=== PATIENT | male | born 1925 | race African-American/Black ===

== ENCOUNTER → 2016-11-18 | Outpatient (CLI) | payer MEDICARE, BC ==
[~2016-11-18] VITALS: Ht 188 cm; Wt 72.6 kg
[~2016-11-18] MED LIST: AMIO100T4 PO; AMLO10TA4 PO; ASPI325T2 PO; ATOR80TA PO; CLOP75TA2 PO; FURO-151 PO; FUROSEMIDE 20MG/2ML VIAL IVP ONE; LOSA50TA3 PO; POTA20TA82 PO; TRAM50TA PO
== END | disposition home or self-care (01) ==
LOC: NM 09:07
PROVIDERS: ATTEND Specialist
DX: N13.30 Unspecified hydronephrosis (principal)
CPT/HCPCS: 78707; A9562; J1940